=== PATIENT | male | born 1995 | race Two or more races ===

== ENCOUNTER 2018-07-21 11:18 | Emergency (ER) | payer MEDICAID, OTHER ==
[~2018-07-21] VITALS: Ht 175.3 cm; Wt 115.7 kg
[2018-07-21 11:22] VITALS: BP 126/59
== END 2018-07-21 12:16 | disposition home or self-care (01) ==
LOC: ER 11:18 → EDBD 11:18 → MERGE 11:18 → ER 12:12
DX: M77.9 Enthesopathy, unspecified (principal); Z88.0 Allergy status to penicillin
CPT/HCPCS: 73630